=== PATIENT | male | born 1935 | race Caucasian/White ===

== ENCOUNTER 2023-03-01 10:18 | Outpatient (CLI) | payer MEDICARE, OTHER, SELFPAY ==
--- NOTE | 2023-03-01 10:30 | FL_ITS ---
WS: [id number] barium swallow 11320 REASON FOR EXAM: DYSPHAGIA FLUOROSCOPY TIME: 3min [id number] # OF SPOT FILMS: Multiple TECHNIQUE: Patient was examined in the upright position. AP and lateral projections. Patient was examined in the JONES position. The swallowing of barium was monitored fluoroscopically and documented with multiple spot films. FINDINGS: Normal anatomy and motility of the cervical esophagus. No extrinsic or intrinsic mass effect of the thoracic esophagus. Intermittent tertiary contractions. Small hiatal hernia without significant reflux or stricture. IMPRESSION: Minimal dysmotility. Patient had difficulty swallowing barium for the examination due to pain. He claims he developed hoar seness and difficulty swallowing (painful) within 72 hours of injection of gadolinium for an MRI stud y. He is clearly hoarse at this time and clearly has difficulty with swallowing. He has no obstructio n or significant dysmotility. After further interviewing the patient I believe this may be a delayed allergy to gadolinium. Not NSF . He may respond to short course of steroids and other anti-inflammatory therapy.
== END 2023-03-01 10:19 | disposition home or self-care (01) ==
LOC: RAD 10:22
PROVIDERS: PCP Family Medicine; Visit Provider Family Medicine
DX: R13.10 Dysphagia, unspecified (principal); J38.3 Other diseases of vocal cords; R49.0 Dysphonia
CPT/HCPCS: 74220